=== PATIENT | female | born 1960 | race Caucasian/White ===

== ENCOUNTER 2023-05-18 11:50 | Day surgery (SDC) | payer OTHER ==
[~2023-05-18 11:50] MED LIST: Lactated Ringers 1,000 ML IV SCH
[2023-05-18] MEDS ORDERED: Lidocaine 2% 5 ML SDV ONE (15:07)
[2023-05-18] MEDS ORDERED: Propofol 200 MG/20 ML SDV ONE ×2 (15:08→15:28)
[2023-05-18] MEDS ORDERED: Lactated Ringers 1,000 ML IV SCH (16:00)
== END 2023-05-18 16:30 | disposition home or self-care (01) ==
LOC: MW.SDS 11:50
PROVIDERS: ATTEND Surgery
DX: K29.50 Unspecified chronic gastritis without bleeding (principal); K44.9 Diaphragmatic hernia without obstruction or gangrene; K52.9 Noninfective gastroenteritis and colitis, unspecified; D64.9 Anemia, unspecified; I10 Essential (primary) hypertension; E66.9 Obesity, unspecified; Z88.5 Allergy status to narcotic agent; Z91.040 Latex allergy status; Z90.710 Acquired absence of both cervix and uterus; Z68.32 Body mass index [BMI] 32.0-32.9, adult
CPT/HCPCS: 43239; 45380; J2704; J7120; 00813; J3490